=== PATIENT | female | born 1990 | race Caucasian/White ===

== ENCOUNTER 2020-05-17 23:43 | Inpatient (IN) | payer BC ==
[2020-05-18 00:20] VITALS: BMI 36.2
[2020-05-18] MEDS ORDERED: Promethazine HCl 25 MG/ML VIAL IM PRN (01:44)
[2020-05-18] MEDS ORDERED: Lidocaine 1% (PF) 30 ML VIAL SC PRN (01:44)
[2020-05-18] MEDS ORDERED: Ibuprofen 800 MG TAB PO PRN (01:44)
[2020-05-18] MEDS ORDERED: Diphenoxylate HCl/Atropine Tablet PO PRN ×2 (01:44)
[2020-05-18] MEDS ORDERED: hydrALAZINE 20 MG/ML VIAL SLOW IVP PRN ×2 (01:44→18:13)
[2020-05-18] MEDS ORDERED: Methylergonovine 0.2 MG/ML VIAL IM PRN ×2 (01:44→18:13)
[2020-05-18] MEDS ORDERED: Misoprostol 200 MCG TAB PR PRN (01:44)
[2020-05-18] MEDS ORDERED: HYDROcodone/Acetaminophen 5/325 mg Tablet PO PRN ×4 (01:44→18:13)
[2020-05-18] MEDS ORDERED: Carboprost 250 MCG/ML AMP IM PRN (01:44)
[2020-05-18] MEDS ORDERED: NS / Oxytocin 40 units/1000ml 1,000 ML IV PRN (01:44)
[2020-05-18] MEDS: Ondansetron PF 4 MG/2 ML Vial IVP PRN ×2 (02:14→07:46)
[2020-05-18] MEDS ORDERED: Fentanyl 4 mcg/Bup 0.1% Cadd 100 ML ONE ×2 (02:26→11:11)
[2020-05-18 02:37] LABS: Hemoglobin 11.7 g/dL (12.0-15.5); Mean Corpuscular HGB CONC 33.1 g/dL (32.0-36.0); Mean Corpuscular Hemoglobin 29.9 pg (27.0-33.0); Mean Corpuscular Volume 90.3 fl (81.6-98.3); Mean Platelet Volume 10.6 fl (7.4-10.4); Platelet Count 254 10x3/uL (150-450); RBC Distribution Width 13.3 % (11.5-14.5); Red Blood Cell (RBC) Count 3.91 10x6/uL (3.90-5.03); White Blood Cell (WBC) Count 17.2 10x3/uL (3.5-10.5)
[2020-05-18 02:54] LABS: Syphilis Antibody Nonreactive (Nonreactive); Syphilis Antibody Index 0.03 S/CO (<1.00 Non-Reactive)
[2020-05-18 02:56] LABS: Hep B Surf Ag Non-Reactive S/CO (NonReactive)
[2020-05-18 02:58] LABS: HBSAg Index 0.17 S/CO (0-0.99)
[2020-05-18] MEDS: Lactated Ringer's 1,000 ML IV PRN ×4 (03:07→17:13)
[2020-05-18] MEDS ORDERED: Bupivacaine 0.25% HCL 30 ML VIAL ONE (08:00)
[2020-05-18] MEDS ORDERED: NS w/ Oxytocin 30 units 500 ML ONE ×2 (08:04→15:36)
[2020-05-18 13:36] LABS: SARS-CoV-2 PCR by NAA Not Detected (NotDetected)
[2020-05-18] MEDS ORDERED: Misoprostol 200 MCG TAB ONE (15:04)
[2020-05-18] MEDS ORDERED: Phytonadione Neonatal 1 MG/0.5 ML AMP ONE (15:35)
[2020-05-18] MEDS ORDERED: Erythromycin Base 0.5% Oint 1 GM TUBE ONE (15:35)
[2020-05-18] MEDS ORDERED: CEFAZOLIN 1 GM VIAL SLOW IVP STA (15:37)
[2020-05-18] MEDS ORDERED: Lanolin Ointment 7 GM TUBE TOP PRN (18:13)
[2020-05-18] MEDS ORDERED: Milk Of Magnesia 30 ML UDCUP PO PRN (18:13)
[2020-05-18] MEDS ORDERED: Adacel (T-DAP) 0.5 ML SYRINGE IM ONE (18:13)
[2020-05-18] MEDS ORDERED: Ondansetron PF 4 MG/2 ML Vial IVP PRN (18:13)
[2020-05-18] MEDS ORDERED: Benzocaine-Menthol 82.5 ML CAN TOP PRN (18:13)
[2020-05-18] MEDS ORDERED: Bisacodyl 10 MG SUPP PR PRN (18:13)
[2020-05-18] MEDS ORDERED: Ferrous Sulfate 325 MG TAB PO SCH (18:30)
[2020-05-18] MEDS ORDERED: NS w/ Oxytocin 30 units 500 ML IV SCH (18:30)
[2020-05-18 20:32] LABS: #Monocytes 1.5 10x3/uL (0.0-1.1); #Neutrophils 18.8 10x3/uL (1.5-8.4); %Basophils 0.2 % (0.0-2.0); %Lymphocytes 8.7 % (18.0-47.0); %Monocytes 6.7 % (0.0-10.0); %Neutrophils 83.6 % (40.0-75.0); Hemoglobin 9.3 g/dL (12.0-15.5); Mean Corpuscular HGB CONC 33.3 g/dL (32.0-36.0); Mean Corpuscular Hemoglobin 29.4 pg (27.0-33.0); Mean Corpuscular Volume 88.3 fl (81.6-98.3); Mean Platelet Volume 10.4 fl (7.4-10.4); Platelet Count 225 10x3/uL (150-450); RBC Distribution Width 13.5 % (11.5-14.5); Red Blood Cell (RBC) Count 3.16 10x6/uL (3.90-5.03); White Blood Cell (WBC) Count 22.5 10x3/uL (3.5-10.5)
[2020-05-18] MEDS ORDERED: Ampicillin 2 GM VIAL ONE (21:31)
[2020-05-18] MEDS ORDERED: Gentamicin Sulfate 120 MG in Premix Bag 1 BAG IVPB SCH (21:45)
[2020-05-18] MEDS: Gentamicin Sulfate 80 MG in Premix Bag 1 BAG IVPB SCH (21:53)
[2020-05-18] MEDS ORDERED: Gentamicin 20 MG/2 ML PF (Neonates) IVPB SCH (22:00)
[2020-05-18] MEDS: Docusate Calcium (SURFAK) 240 MG CAP PO SCH (23:53)
[2020-05-18] MEDS: Ibuprofen 800 MG TAB PO SCH (23:53)
[2020-05-19] MEDS ORDERED: Ampicillin 2 GM VIAL ONE (04:52)
[2020-05-19] MEDS: Gentamicin Sulfate 80 MG in Premix Bag 1 BAG IVPB SCH ×2 (04:59→14:15)
[2020-05-19] MEDS: Docusate Calcium (SURFAK) 240 MG CAP PO SCH (08:40)
[2020-05-19] MEDS: Ibuprofen 800 MG TAB PO SCH ×2 (08:40→14:14)
[2020-05-19] MEDS: Ferrous Sulfate 325 MG TAB PO SCH ×2 (08:40→17:04)
[2020-05-19] MEDS ORDERED: Prenatal Vitamin 1 TAB PO SCH (09:00)
[2020-05-19 16:57] VITALS: BP 113/76; TEMP 97.9
== END 2020-05-19 17:45 | disposition home or self-care (01) | DRG 807 ==
LOC: CSHLD/OP 23:43 → CSHLD 05-18 02:06 → CSHPP 05-18 22:31
PROVIDERS: ADMIT Obstetrics & Gynecology; ATTEND Obstetrics & Gynecology
PROC: 10E0XZZ Delivery of Products of Conception, External Approach (ICD-10-PCS; principal; 2020-05-18)
PROC: 10D17Z9 Manual Extraction of Products of Conception, Retained, Via Natural or Artificial Opening (ICD-10-PCS; 2020-05-18)
PROC: 10907ZC Drainage of Amniotic Fluid, Therapeutic from Products of Conception, Via Natural or Artificial Opening (ICD-10-PCS; 2020-05-18)
DX: O73.0 Retained placenta without hemorrhage (principal); Z37.0 Single live birth; Z3A.39 39 weeks gestation of pregnancy; Z20.822 Contact with and (suspected) exposure to COVID-19
CPT/HCPCS: 36415; 51701; 51702; 76815; 86780; 86850; 86900; 86901; 87340; 87635; J0290; J0690; J1580; J2405; J2590; J3490; J7070; S0020; U0003; U0005